=== PATIENT | female | born 1985 | race African-American/Black ===

== ENCOUNTER 2017-07-10 21:56 | Emergency (ER) | payer OTHER ==
[~2017-07-10] VITALS: Ht 167.6 cm; Wt 50.0 kg
[2017-07-11 01:43] VITALS: BP 114/71
[2017-07-11] MEDS ORDERED: KETOROLAC TROMETHAMINE 30 MG/ML VIAL IM ONE (02:00)
== END 2017-07-11 02:15 | disposition home or self-care (01) ==
LOC: EMS 22:00
DX: L03.115 Cellulitis of right lower limb (principal); F17.210 Nicotine dependence, cigarettes, uncomplicated
CPT/HCPCS: 96372; 99283; J1885

== ENCOUNTER 2018-03-07 09:15 | Emergency (ER) | payer OTHER ==
[~2018-03-07] VITALS: Ht 167.6 cm; Wt 50.0 kg
[2018-03-07 10:39] LABS: APPEARANCE,URINE CLOUDY (CLEAR); GLUCOSE, URINE (UA) NEGATIVE (NEGATIVE); KETONES,URINE TRACE mg/dL (NEGATIVE); LEUKOCYTE ESTERASE ,URINE LARGE (NEGATIVE); NITRATE,URINE NEGATIVE (NEGATIVE); OCCULT BLOOD,URINE LARGE (NEGATIVE); PROTEIN,URINE POS 1+ (NEGATIVE); UROBILINOGEN,URINE 0.2 mg/dL (<=1.0)
[2018-03-07 10:40] LABS: BILIRUBIN,URINE PRELIM. POSITIVE (NEGATIVE)
[2018-03-07 10:48] LABS: RBC,URINE 51-100 /HPF (0-2)
[2018-03-07 10:49] LABS: BACTERIA,URINE Few /HPF (None Seen); SQUAMOUS EPITHELIAL CELL,UR Few /LPF (None Seen); WBC,URINE 26-50 /HPF (0-5)
[2018-03-07 11:03] VITALS: BP 140/74
== END 2018-03-07 11:06 | disposition home or self-care (01) ==
LOC: EMS 09:16
DX: N39.0 Urinary tract infection, site not specified (principal); F17.210 Nicotine dependence, cigarettes, uncomplicated; F12.90 Cannabis use, unspecified, uncomplicated
CPT/HCPCS: 87086; 99284; 99406

== ENCOUNTER 2020-05-17 13:32 | Emergency (ER) | payer OTHER ==
[~2020-05-17] VITALS: Ht 167.6 cm; Wt 60.5 kg
[2020-05-17 15:23] VITALS: BP 110/70
== END 2020-05-17 16:04 | disposition home or self-care (01) ==
LOC: EMS 13:32
DX: L03.011 Cellulitis of right finger (principal); F17.210 Nicotine dependence, cigarettes, uncomplicated; F12.90 Cannabis use, unspecified, uncomplicated

== ENCOUNTER 2020-05-28 20:29 | Emergency (ER) | payer OTHER ==
[~2020-05-28] VITALS: Ht 167.6 cm; Wt 60.5 kg
[2020-05-28] MEDS ORDERED: LIDOCAINE 1% 10 ML VIAL INJ ONE (23:00)
[2020-05-28 23:58] VITALS: BP 127/77
== END 2020-05-29 00:04 | disposition home or self-care (01) ==
LOC: EMS 20:32
DX: L03.011 Cellulitis of right finger (principal); F12.90 Cannabis use, unspecified, uncomplicated; F17.290 Nicotine dependence, other tobacco product, uncomplicated
CPT/HCPCS: 10060; 99283; J3490

== ENCOUNTER 2022-04-05 21:30 | Emergency (ER) | payer OTHER ==
[~2022-04-05] VITALS: Ht 172.7 cm; Wt 63.6 kg
[2022-04-05 21:46] VITALS: BP 129/75
[2022-04-05] MEDS ORDERED: QUET100T PO (21:58)
[2022-04-05] MEDS ORDERED: PENI500T2 PO (23:15)
[2022-04-05] MEDS ORDERED: IBUP-2070 PO (23:15)
== END 2022-04-05 23:10 | disposition home or self-care (01) ==
LOC: EMS 21:30
DX: K02.9 Dental caries, unspecified (principal); K08.89 Other specified disorders of teeth and supporting structures; F10.20 Alcohol dependence, uncomplicated; F12.90 Cannabis use, unspecified, uncomplicated; F17.210 Nicotine dependence, cigarettes, uncomplicated; K05.00 Acute gingivitis, plaque induced; Z88.5 Allergy status to narcotic agent
CPT/HCPCS: 99283

== ENCOUNTER 2023-02-24 16:43 | Emergency (ER) | payer OTHER ==
[~2023-02-24] VITALS: Ht 167.6 cm; Wt 58.2 kg
[~2023-02-24 16:43] MED LIST: IBUP-1492 PO; PENI500T2 PO; QUET100T PO
[2023-02-24 16:58] VITALS: BP 119/81; PULSE 101; RESP 16; TEMP 98.3
== END 2023-02-24 20:05 | disposition left against medical advice (07) ==
LOC: EMS 20:05
DX: K08.89 Other specified disorders of teeth and supporting structures (principal); Z53.21 Procedure and treatment not carried out due to patient leaving prior to being seen by health care provider
CPT/HCPCS: 99281; Z7502